=== PATIENT | male | born 2000 | race Caucasian/White ===

== ENCOUNTER 2023-12-18 11:54 | Emergency (ER) | payer OTHER, SELFPAY ==
--- NOTE | 2023-12-18 12:25 | RAD REPORT ---
EXAM: CT brain without contrast HISTORY: altered mental status COMPARISON: None TECHNIQUE: Multiple contiguous axial images were obtained and a CT of the brain without contrast. Sag ittal and coronal reformats were performed. One or more of the following dose reduction techniques were used: Automated exposure control, adjust ment of the mA and/or kV according to patient size, and/or iterative reconstruction. FINDINGS: No evidence of hydrocephalus, intracranial hemorrhage, or extra-axial fluid collection. The brain is normal in morphology. No evidence of midline shift or areas of brain edema. The calvarium is intact. The visualized paranasal sinuses and mastoid air cells are essentially clear . IMPRESSION: No evidence of acute intracranial abnormality.
[2023-12-18] MEDS ORDERED: NA CHLORIDE 0.9% 1,000 ML ONE ×3 (14:53→23:22)
[2023-12-18 14:57] LABS: Specific Gravity 1.017 (1.005-1.030); Sqamous Epithelial <5 /HPF (None Seen); Urine Bacteria None Seen /HPF (<20); Urine Bilirubin NEGATIVE (Negative); Urine Blood Negative (Negative); Urine Clarity Clear (Clear); Urine Color Yellow (Yellow); Urine Crystals Unidentified Few /HPF (None Seen); Urine Culture Reflex Order NOT NEEDED; Urine Glucose NEGATIVE (Negative); Urine Ketones NEGATIVE (Negative); Urine Micro Reflex YN NO BILL MICROSCOPIC; Urine Mucus 3+ /HPF (None Seen); Urine Nitrite NEGATIVE (Negative); Urine Protein NEGATIVE (Negative); Urine RBC <5 /HPF (None Seen); Urine Urobilinogen Normal (Normal); Urine WBC <5 /HPF (<5); Urine WBC Clump Rare /HPF (None Seen)
[2023-12-18 15:12] LABS: Absolute Lymphocytes (CBC) 2.2 K/uL (0.7-4.9); Absolute Monocytes 0.7 K/uL (0.1-1.3); Absolute Neutrophil 5.7 K/uL (1.8-8.0); Basophils % 0.3 % (0-1.3); Eosinophils % 0.5 % (0-4.4); Hemoglobin 13.3 g/dL (13.6-17.9); Lymphocytes % 25.9 % (15.3-44.8); MCH 29.9 pg (27.0-35.0); MCHC 33.3 g/dL (32.0-36.0); MCV 89.6 fL (80-100); MPV 8.3 fL (7.6-11.3); Monocytes % 8.2 % (3.3-12.3); Neutrophils % 65.1 % (41.7-73.7); Platelets 275 thou/uL (152-406); RBC Red Blood Cell Count 4.47 M/uL (4.33-5.43); Red Cell Distribution Width 12.8 % (12.1-15.2)
[2023-12-18 15:23] LABS: PT Prothrombin Time 11.3 SECONDS (9.4-12.5); Protime INR 1.01
[2023-12-18 15:41] LABS: ALT/SGPT 24 U/L (16-61); AST/SGOT 14 U/L (15-37); Albumin/Globulin Ratio 1.4 (1.1-1.8); Alkaline Phosphatase 58 U/L (45-117); Anion Gap 7.9 mEq/L (5.0-15.0); BUN Blood Urea Nitrogen 17 mg/dL (7-18); Bicarbonate 27 mEq/L (21-32); Bilirubin Total 0.3 mg/dL (0.2-1.0); Creatine Phosphokinase 120 U/L (39-308); Globulin 2.9 g/dL (2.3-3.5); Glomerular Filtration Rate 93 ml/min (=/>90); Glucose Level 103 mg/dL (74-106); Potassium 3.9 mEq/L (3.5-5.1); Protein, Total 6.9 g/dL (6.4-8.2); Sodium Level 139 mEq/L (136-145)
[2023-12-18 15:42] LABS: Bilirubin Direct < 0.2 mg/dL (0-0.2); Bilirubin Indirect, Calculated 0.1 mg/dL (0.2-0.8)
[2023-12-18 16:31] LABS: Barbiturates NEGATIVE (NEGATIVE); Benzodiazepines NEGATIVE (NEGATIVE); Cocaine NEGATIVE (NEGATIVE); METHAMPHETAM NEGATIVE (NEGATIVE); Methadone NEGATIVE (NEGATIVE); Opiates NEGATIVE (NEGATIVE); Phencyclidine NEGATIVE (NEGATIVE); THC Cannibis POSITIVE (NEGATIVE)
[2023-12-18] MEDS ORDERED: THIAMINE 200 MG/2 ML INJ ONE (16:33)
[2023-12-18] MEDS ORDERED: FOLIC ACID 5 MG/ML VIAL ONE (16:33)
[2023-12-18] MEDS ORDERED: MULTIVITAMINS 10 ML VIAL (INJ) IV ONE (16:35)
[2023-12-18 17:08] LABS: Arterial Blood Carboxyhemoglob 1.4 % (0-1.5); Blood Gas THB 14.3 g/dl (12-18); Blood O2 Saturation 83.8 % (92-98.5)
--- NOTE | 2023-12-18 17:26 | RAD REPORT ---
Procedure: Chest Single View History: Cough Comparison: none Findings: The lungs appear clear of acute infiltrate. No significant pleural effusion noted. The heart is normal size. IMPRESSION: No acute abnormality is displayed.
--- NOTE | 2023-12-18 18:52 | RAD REPORT ---
EXAM: CT CHEST, ABDOMEN AND PELVIS WITHOUT CONTRAST CLINICAL INDICATION: Chest and abdominal pain TECHNIQUE: CT chest, abdomen and pelvis was performed, with 100 cc Isovue-300 IV contrast, as per de partment protocol. Axial, sagittal and coronal reconstructions were obtained. One or more of the following dose reduction techniques were used: Automated exposure control, adjustment of the mA and/o r kV according to the patient size, and/or iterative reconstruction. Unless otherwise specified, incidental findings do not require dedicated imaging follow-up. [id number]. Oral contrast not given. This limits evaluation of the bowel. COMPARISON: No prior exam. FINDINGS: Lungs are clear No mediastinal or hilar lymphadenopathy. No pleural effusion. Pericardial effusion. Liver, spleen, pancreas, adrenals and kidneys appear unremarkable. There is no evidence of diverticulitis Mild anterior subluxation L5 on S1. Spondylolysis L5 IMPRESSION: No acute abnormalities displayed
[2023-12-18 18:58] LABS: Thyroid Stimulating Hormone 0.259 uIU/mL (0.358-3.740)
[2023-12-18] MEDS ORDERED: CEFTRIAXONE 2000 MG/VIAL ONE (22:23)
[2023-12-18] MEDS ORDERED: VANCOMYCIN 1 GM/VIAL ONE (22:23)
[2023-12-18] MEDS ORDERED: ETOMIDATE 20 MG/10 ML VIAL IV ONE (22:23)
[2023-12-18] MEDS ORDERED: LIDOCAINE 1% 20 ML MDV ONE (22:23)
[2023-12-18] MEDS ORDERED: NA CHLORIDE 0.9% 100 ML ONE ×2 (22:24→22:59)
[2023-12-18] MEDS ORDERED: NA CHLORIDE 0.9% 500 ML ONE (22:24)
[2023-12-18] MEDS ORDERED: D5 0.9 NS 1,000 ML IV ONE (22:24)
[2023-12-18] MEDS ORDERED: ACYCLOVIR NA 500 MG/VIAL IVPB ONE (22:32)
[2023-12-18] MEDS ORDERED: MIDAZOLAM HCL 5 ML ONE ×3 (23:12→23:22)
[2023-12-18 23:45] LABS: Appearance CLEAR (CLEAR); Body Fluid Source CSF; Color of Supernate Not Xanthochromic (Not Xantho); Color of fluid Colorless (COLORLESS); Tube # #2
[2023-12-18 23:47] LABS: Appearance CLEAR (CLEAR); Body Fluid Source CSF; Color of Supernate Not Xanthochromic (Not Xantho); Color of fluid Colorless (COLORLESS); Fluid Total Volume 8 ml; Tube # #4
[2023-12-18 23:55] LABS: CSF Glucose 69 mg/dL (40-70)
[2023-12-19] MEDS ORDERED: LEVETIRACETAM 500 MG/5 ML VIAL IV ONE (00:15)
[2023-12-19] MEDS ORDERED: NA CHLORIDE 0.9% 100 ML ONE (00:16)
[2023-12-19 00:39] LABS: Body Fluid WBC 4 /mm^3
[2023-12-19 00:40] LABS: Body Fluid WBC 5 /mm^3; Fluid Total Cells Count 72
[2023-12-19 00:41] LABS: Body Fluid Lymphocytes 21 %
--- NOTE | 2023-12-19 01:20 | EDPHYS ---
Physician Documentation [facility] Name: Lance Munoz Age: 22 yrs Sex: Male : 2000 Arrival Date: 12/18/2023 Time: 11:54 Bed 4 Private MD: ED Physician Michael Hooker HPI: 12/17 12:03 This 22 yrs old Male presents to ER via Unassigned with complaints of Altered ec2 Mental Status. 12:03 Patient arrives today for evaluation of altered mental status. Patient with patient ec2 arrives today, was at work and subsequently noted to be increasingly altered. EMS reports that they had noted that he had cough and cold medication and the patient struck, p.m. medications. Patient reports no falls injuries or trauma.. Historical: - Allergies: 12:33 No Known Allergies; tl4 - Home Meds: 12:33 None [Active]; tl4 - PMHx: 12:33 None; tl4 - PSHx: 12:33 None; tl4 - Immunization history:: Adult Immunizations unknown. - Infectious Disease History:: Denies. - Social history:: Smoking status: Reported history of juuling and/or vaping. Patient uses THC gummies. ROS: 12:03 Constitutional: as per hpi ec2 Exam: 12:03 Constitutional: GEN: NAD Head: atraumatic Eyes: EOMI Ears: External ears are ec2 normal. CV: regular rate LUNGS: no respiratory distress ABD: non-distended SKIN: no evidence of rashes MSK: no evidence of trauma. Neuro: Cranial nerves II through XII intact, strength intact all 4 extremities., Intermittently drowsy, GCS of 15 Vital Signs: 12:10 BP 120 / 63; Pulse 66; Resp 18; Temp 98.3(O); Pulse Ox 98% on R/A; tl4 12:28 BP 120 / 63; Pulse 70; Resp 14; Temp 97.9(O); Pulse Ox 96% on R/A; Weight 83.91 kg; tl4 Height 6 ft. 0 in. ; Pain 0/10; 12:37 BP 115 / 61; Pulse 63; Resp 16; Pulse Ox 97% on R/A; tl4 13:00 BP 123 / 62; Pulse 62; Resp 13; Pulse Ox 99% on R/A; tl4 13:30 BP 122 / 65; Pulse 59; Resp 18; Pulse Ox 98% on R/A; tl4 14:00 BP 124 / 64; Pulse 63; Resp 18; Pulse Ox 99% on R/A; tl4 14:30 BP 125 / 70; Pulse 60; Resp 18; Pulse Ox 98% on R/A; tl4 15:00 BP 129 / 65; Pulse 65; Resp 15; Pulse Ox 97% on R/A; tl4 15:30 BP 125 / 62; Pulse 67; Resp 15; Pulse Ox 98% on R/A; Pain 0/10; tl4 16:00 BP 128 / 65; Pulse 60; Resp 18; Pulse Ox 97% on R/A; tl4 16:30 BP 123 / 73; Pulse 69; Resp 16; Pulse Ox 99% on R/A; tl4 17:00 BP 119 / 76; Pulse 69; Resp 18; Pulse Ox 99% on R/A; tl4 17:30 BP 127 / 69; Pulse 82; Resp 19; Pulse Ox 99% on R/A; tl4 18:00 BP 125 / 75; Pulse 54; Resp 16; Pulse Ox 98% on R/A; tl4 19:18 BP 121 / 66; Pulse 52; Resp 12; Pulse Ox 98% ; vc1 20:42 BP 110 / 61; Pulse 54; Resp 10; Pulse Ox 97% ; vc1 22:12 BP 115 / 65; Pulse 51; Resp 10; Pulse Ox 97% ; vc1 23:00 BP 112 / 56; Pulse 96; Resp 12; Pulse Ox 100% on 2 lpm NC; vc1 10 00:00 BP 116 / 63; Pulse 79; Resp 14; Temp 97.9; Pulse Ox 100% on 4 lpm NC; vc1 01:00 BP 118 / 53; Pulse 66; Resp 12; Temp 96.9; Pulse Ox 100% ; vc1 02:00 BP 130 / 86; Pulse 72; Resp 15; Pulse Ox 96% ; vc1 10 12:28 Body Mass Index 25.09 (83.91 kg, 182.88 cm) tl4 12:28 Pain Scale: Adult tl4 15:30 Pain Scale: Adult tl4 Procedures: 01:20 Lumbar Puncture: Patient placed in right lateral decubitus position. Prepped with sp4 Betadine. Draped using sterile technique. Collected 8 ml's of clear fluid. Puncture site dressed with band aid, Patient tolerated well. CSF Collected under Moderate Sedation. with Etomidate and Versed . Moderate sedation: Pre-procedure assessment: the patient has been NPO 8 hour(s) prior to arrival, ASA physical classification: I - healthy, no underlying organic disease, Airway assessment: able to hyperextend neck, able to maintain airway, can open mouth without difficulty, Mallampati classification of tongue size: II - faucial pillars and soft palate can be visualized, but uvula is masked by the base of the tongue, Monitoring during procedure: quality assurance monitor, continuous pulse oximetry, nurse at bedside at all times, Medications employed: Etomidate, 40 mg(s), Versed, 15 mg(s), Moderate Sedation done for LP . Patient was given etomidate and Versed IV without complications without respiratory depression., Post-procedure assessment: the patient is moderately sedated, Joseph sedation score: 4 - brisk response to a light glabellar tap, Respiratory status: requires supplemental oxygen to maintain acceptable oxygen saturation, a reversal agent was not used, Total moderate sedation time 25 minutes. . MDM: 12/17 12:03 Data reviewed: vital signs. ED course: Patient arrives today for evaluation of altered ec2 mental status. Examination remarkable for neuro intact individuals otherwise in no acute distress with a reassuring examination. Will obtain lab work, CT scan of the head. Differential includes intracranial mass, bleeding, electrolyte disturbances, anemia, toxic ingestion.. 14:47 ED course: EKG independently reviewed and interpreted by me, shows normal sinus rhythm, ec2 rate of 63, no acute ST segment elevation, intervals are nonactionable.. 15:24 ED course: CBC is reassuring, urine is unremarkable. . ec2 15:45 ED course: Metabolic profile reassuring, Tylenol level undetectable. Liver profile ec2 unremarkable, CPK minimally elevated at 120. . 17:01 ED course: UDS positive for THC. Blood gas non-actionable, ph 7.36, CO2 at 46. ec2 17:36 ED course: On reassessment patient with improving mental status, and is awake, ec2 ambulatory however still remains intermittently confused. Have a lower suspicion for process such as meningitis or encephalitis given lack of infectious symptoms. Will continue to observe him, possibly admit if he remains altered.. 17:57 ED course: Patient signed out pending CT imaging, additional lab work, patient ec2 ultimately remains altered, may require observation versus admission.. 17:59 Patient medically screened. sb4 12/18 01:23 ED course: RADIOLOGYSERVICES REPORT Name: LANCE MUNOZ Acct Number: s :2000 Age:22 Sex:M Ord Phys: Lawrence Olvera Unit Number: [id number] [facility] Dr: NONE Status: REG ER ER Exam Date: 12/18/23 EXAM: CT brain without contrast HISTORY: altered mental status COMPARISON: None TECHNIQUE: Multiple contiguous axial images were obtained and a CT of the brain without contrast. Sagittal and coronal reformats were performed. One or more of the following dose reduction techniques were used: Automated exposure control, adjustment of the mA and/or kV according to patient size, and/or iterative reconstruction. FINDINGS: No evidence of hydrocephalus, intracranial hemorrhage, or extra-axial fluid collection. The brain is normal in morphology. No evidence of midline shift or areas of brain edema. The calvarium is intact. The visualized paranasal sinuses and mastoid air cells are essentially clear. IMPRESSION: No evidence of acute intracranial abnormality. . ED course: Procedure: Chest Single View History: Cough Comparison: none Findings: The lungs appear clear of acute infiltrate. No significant pleural effusion noted. The heart is normal size. IMPRESSION: No acute abnormality is displayed.. ED course: CT - A pericardial effusion is not present Addendum Dictated By: Pierre Easton MD Addendum Signed By: Pierre Easton MD Dictated Date/Time: 12/18/2301/30/1853 Transcribed Date/Time: / Signed Date/Time: 12/18/231852 CC: Lawrence Olvera; NONE EXAM: CT CHEST, ABDOMEN AND PELVIS WITHOUT CONTRAST CLINICAL INDICATION: Chest and abdominal pain TECHNIQUE: CT chest, abdomen and pelvis was performed, with 100 cc Isovue-300 IV contrast, as per department protocol. Axial, sagittal and coronal reconstructions were obtained. One or more of the following dose reduction techniques were used: Automated exposure control, adjustment of the mA and/or kV according to the patient size, and/or iterative reconstruction. Unless otherwise spe cified, incidental findings do not require dedicated imaging follow-up. [id number]. Oral contrast not given. This limits evaluation of the bowel. COMPARISON: No prior exam. FINDINGS: Lungs are clear No mediastinal or hilar lymphadenopathy. Cont No pleural effusion. Pericardial effusion. Liver, spleen, pancreas, adrenals and kidneys appear unremarkable. There is no evidence of diverticulitis Mild anterior subluxation L5 on S1. Spondylolysis L5 IMPRESSION: No acute abnormalities displayed. 02:53 Differential Diagnosis: CVA, electrolyte abnormality, alcohol intoxication, sp4 hypoglycemia, intracranial bleed, meningitis, overdose, pneumonia, seizure, sepsis. Consideration of Admission/Observation Escalation of care including admission/observation considered. ED course: CLINICAL HISTORY: Obtunded. COMPARISON: CT Head 12/18/2023. TECHNIQUE: CT NECK ANGIOGRAPHYWITH IV CONTRAST, CT HEAD ANGIOGRAPHYWITH IV CONTRAST on 12/19/2023 12:04 AM CDT This exam was performed according to our departmental dose-optimization program, which includes automated exposure control, adjustment of the mA and/or kV according to patient size and/or use of iterative reconstruction technique. MIP reconstructions were generated. Stenoses are calculated by NASCET criteria. FINDINGS: The visualized aortic arch and origins of the great vessels unremarkable. The common carotid arteries are patent and symmetric bilaterally. No hemodynamically significant stenosis is observed at the common carotid bifurcations or origins of the internal carotid arteries bilaterally. Vertebral arteries are unremarkable without evidence of pseudoaneurysm, hemodynamically significant stenosis, or dissection. Intracranially the cavernous segments of the internal carotid arteries are patent and symmetric bilaterally. Vertebral basilar system within normal limits for age. No aneurysm identified within the [place]. Anterior, middle, and posterior cerebral circulations are patent and symmetric bilaterally. Dural sinuses are well opacified and without filling defect. IMPRESSION: Unremarkable CT angiogram of the neck for age without dissection or hemodynamically significant stenosis. Unremarkable CTA of the brain without evidence of hemodynamically significant stenosis, aneurysm or AVM. . 12/17 11:56 Order name: Acetaminophen; Complete Time: 15:45 ec2 12/17 11:56 Order name: Basic Metabolic Panel; Complete Time: 15:45 ec2 12/17 11:56 Order name: CBC with Diff; Complete Time: 15:23 ec2 12/17 11:56 Order name: ETOH Level; Complete Time: 15:35 2 12/17 11:56 Order name: Hepatic Function; Complete Time: 15:45 2 12/17 11:56 Order name: PT-INR; Complete Time: 15:23 ec2 12/17 11:56 Order name: Ptt, Activated; Complete Time: 15:23 2 12/17 11:56 Order name: Salicylate; Complete Time: 15:45 2 12/17 11:56 Order name: Urine Drug Screen; Complete Time: 17:01 2 12/17 13:57 Order name: UAM; Complete Time: 15:23 2 12/17 15:08 Order name: Creatine Phosphokinase; Complete Time: 15:45 MS 12/17 16:26 Order name: AMMONIA; Complete Time: 17:33 2 12/17 16:26 Order name: ABG: VBG not ABG 2 12/17 17:54 Order name: TSH; Complete Time: 19:05 2 12/17 17:54 Order name: T4 Free; Complete Time: 19:05 2 12/17 17:54 Order name: Osmolality, Serum; Complete Time: 19:19 2 12/17 21:39 Order name: Csf Culture; Complete Time: 14:31 4 12/17 21:39 Order name: Fluid Cell Count,Body; Complete Time: 01:18 4 12/17 21:39 Order name: Spinal Fluid Profile; Complete Time: 01:18 4 12/18 00:39 Order name: ABG: Venous Blood Gas; Complete Time: 02:52 4 12/17 11:56 Order name: CT Head Brain wo Cont; Complete Time: 12:41 2 12/17 16:26 Order name: CXR XRAY; Complete Time: 17:33 2 12/17 17:52 Order name: CT Chest, Abdomen, Pelvis - W/Contrast; Complete Time: 18:57 2 12/18 00:04 Order name: CT Neck Angio [facility] 12/18 00:10 Order name: Head angio [facility] 12/17 11:56 Order name: EKG; Complete Time: 11:56 2 12/17 11:56 Order name: EKG - Nurse/Tech; Complete Time: 15:03 2 12/17 11:56 Order name: IV Saline Lock; Complete Time: 12:28 ec2 12/17 11:56 Order name: Labs collected and sent; Complete Time: 12:28 ec2 12/17 11:56 Order name: Suicide Screening ([place]); Complete Time: 14:09 ec2 12/17 16:26 Order name: Misc. Order: venous blood gas; Complete Time: 16:59 ec2 12/17 21:39 Order name: LP Consents; Complete Time: 01:22 sp4 12/17 21:39 Order name: LP Setup; Complete Time: 22:14 sp4 12/17 23:35 Order name: [place]; Complete Time: 23:35 ha1 Administered Medications: 12/17 15:02 Drug: NS 0.9% IV 1000 ml IV at 1 bolus Per protocol; to be given as a bolus over 60 tl4 minutes Route: IV; Rate: 1 bolus; Site: right antecubital; Delivery: Primary tubing; 16:30 Follow up: Response: No adverse reaction; IV Status: Completed infusion; IV Intake: tl4 1000ml 16:59 Drug: Banana Bag - (Multivitamin IV 1 amp, NS 0.9% IV 1000 ml, Thiamine IV 100 mg, tl4 foLIC Acid IVPB 1 mg) IV at calculated rate once Route: IV; Rate: calculated rate; Site: right antecubital; Delivery: Primary tubing; 18:54 Follow up: Response: No adverse reaction; IV Status: Completed infusion; IV Intake: tl4 1000ml 23:11 Drug: Etomidate IVP 20 mg IVP once Route: IVP; Site: right antecubital; vc1 23:12 Follow up: Response: No change in condition vc1 23:12 Drug: Etomidate IVP 20 mg IVP once Route: IVP; Site: right antecubital; vc1 23:15 Follow up: Response: No change in condition vc1 23:15 Drug: Lidocaine Infiltration (1 %) 20 ml 20 ml Infiltration once; to bedside {Note: vc1 administered by Dr. Hooker.} Volume: 20 ml; Route: Infiltration; 23:16 Drug: Midazolam IVP or IV 5 mg IVP once Route: IVP; Site: right antecubital; vc1 23:18 Follow up: Response: No adverse reaction; RASS: Restless (+1) vc1 23:20 Drug: Midazolam IVP or IV 5 mg IVP once Route: IVP; Site: right antecubital; vc1 23:23 Follow up: Response: No adverse reaction; RASS: Light sedation (-2) vc1 23:24 Drug: Midazolam IVP or IV 5 mg IVP once Route: IVP; Site: right antecubital; vc1 23:25 Follow up: Response: Marked relief of symptoms; RASS: Unarousable (-5) vc1 23:35 Drug: D5-NS IV 1000 ml IV at 125 ml/hr continuous Route: IV; Rate: 125 ml/hr; Site: vc1 left antecubital; 12/18 02:17 Follow up: IV Status: Infusion continued upon transfer; IV Intake: 250ml vc1 12/17 23:35 Drug: Acyclovir IVPB 1000 mg IVPB once Route: IVPB; Site: right antecubital; vc1 12/18 00:35 Follow up: IV Status: Completed infusion; IV Intake: 100ml vc1 12/17 23:40 Drug: Rocephin - Rocephin ([id number]) IVPB 2 grams IVPB once over 30 mins; (mix in vc1 100 mL NS) Route: IVPB; Infused Over: 30 mins; Site: right upper arm; 12/18 00:10 Follow up: IV Status: Completed infusion; IV Intake: 100ml vc1 00:22 Drug: Keppra IV 1000 mg IV at bolus once Route: IV; Rate: bolus; Site: right upper arm; vc1 00:34 Follow up: IV Status: Completed infusion; IV Intake: 100ml vc1 01:00 Drug: vancoMYCIN IVPB 2 grams IVPB at calculated rate once Route: IVPB; Rate: vc1 calculated rate; Site: right antecubital; 01:40 Follow up: Response: Adverse reaction, Physician notified; IV Status: Order to ha1 discontinue infusion 01:45 Drug: diphenhydrAMINE IVP 50 mg IVP once Route: IVP; Site: left antecubital; ha1 02:15 Follow up: Response: No adverse reaction; Marked relief of symptoms vc1 01:47 Drug: MethylPrednisoLONE IVP 125 mg IVP once Route: IVP; Site: left antecubital; ha1 02:15 Follow up: Response: No adverse reaction; Marked relief of symptoms vc1 02:15 Not Given (Hemodynamic Parameters): mg IM once vc1 Disposition Summary: 12/19/23 01:19 Transfer Ordered Notes: Transfer Location: [facility] sp4 Reason: Higher level of care sp4 Condition: Stable sp4 Problem: new sp4 Symptoms: have improved sp4 Accepting Physician: [facility](12/19/23 02:20) vc1 Diagnosis - Altered mental status, unspecified sp4 - Acute lethargy, suspected encephalitis, Acute toxic encephalopathy sp4 Discharge Instructions: - Discharge Summary Sheet ec2 - Confusion ec2 Forms: - Medication Reconciliation Form sp4 - SBAR form sp4 Signatures: Dispatcher [employer] EDMS Carley Montemayor RN RN vc1 Katarzyna Menjivar RN RN ha1 Gema Lutz, PAAngelic PAAngelic sb4 Michael Hooker MD MD sp4 Lawrence Olvera MD MD ec2 Sushant Peralta RN RN tl4 Corrections: (The following items were deleted from the chart) 12/17 11:56 11:56 ACETAMINOPHEN+C.LAB.BRZ ordered. EDMS EDMS 11:56 11:56 BASIC METABOLIC PANEL+C.LAB.BRZ ordered. EDMS EDMS 11:56 11:56 CBC+H.LAB.BRZ ordered. EDMS EDMS 11:56 11:56 ETHANOL+C.LAB.BRZ ordered. EDMS EDMS 11:56 11:56 HEPATIC FUNCTION+C.LAB.BRZ ordered. EDMS EDMS 11:56 11:56 PROTIME (+INR)+COAG.LAB.BRZ ordered. EDMS EDMS 11:56 11:56 PTT, ACTIVATED+COAG.LAB.BRZ ordered. EDMS EDMS 11:56 11:56 SALICYLATE+C.LAB.BRZ ordered. EDMS EDMS 11:56 11:56 URINE DRUG SCREEN+UC.LAB.BRZ ordered. EDMS EDMS 11:57 11:57 Head Brain Wo Cont+CT.RAD.BRZ ordered. EDMS EDMS 15:08 13:15 CREATINE PHOSPHOKINASE+C.LAB.BRZ ordered. EDMS EDMS 16:26 16:26 Arterial Blood Gas+RC.LAB.BRZ ordered. EDMS EDMS 12/18 02:20 01:19 [facility] sp4 vc1
--- NOTE | 2023-12-19 01:20 | ER ---
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 Pt states he took Tylenol sinus medication, denies any illicit substances. Pt states he was not stung or bitten by the animals. Pt is oriented when awake, but falls asleep easily. Pt denies pain or any other symptoms. Pt currently can state his name, , and location. Coronavirus screen: At this time, the client does not indicate any symptoms associated with coronavirus-19. Ebola Screen: No symptoms or risks identified at this time. Initial Sepsis Screen: Does the patient meet any 2 criteria? No. Patient's initial sepsis screen is negative. Does the patient have a suspected source of infection? No. Patient's initial sepsis screen is negative. Risk Assessment: Do you want to hurt yourself or someone else? Patient reports no desire to harm self or others. Onset of symptoms was December 18, 2023 at 12:00. 12:28 Method Of Arrival: EMS: [facility] tl4 12:28 Acuity: EKATERINA 3 tl4 12:34 Care prior to arrival: IV initiated. 20 GA, in the right antecubital area, Glucose tl4 check: 150. Triage Assessment: 12:34 General: Appears in no apparent distress. well groomed, Behavior is cooperative, tl4 drowsy. Pain: Denies pain. EENT: No deficits noted. No signs and/or symptoms were reported regarding the EENT system. Neuro: Level of Consciousness is awake, obeys commands, pt responds easily to verbal stimuli. Neuro: Oriented to person, place, Tissue Inserter are equal bilaterally Moves all extremities. Full function Speech is normal, Facial symmetry appears normal, Pupils are PERRLA, Pupil Size: 4mm Intact. Cardiovascular: Capillary refill < 3 seconds Patient's skin is warm and dry. Rhythm is sinus rhythm. Respiratory: Airway is patent Respiratory effort is even, unlabored, Respiratory pattern is regular, symmetrical, Breath sounds are clear bilaterally. GI: No deficits noted. No signs and/or symptoms were reported involving the gastrointestinal system. : No signs and/or symptoms were reported regarding the genitourinary system. Derm: No signs and/or symptoms reported regarding the dermatologic system. Musculoskeletal: No deficits noted. No signs and/or symptoms reported regarding the musculoskeletal system. Historical: - Allergies: 12:33 No Known Allergies; tl4 - Home Meds: 12:33 None [Active]; tl4 - PMHx: 12:33 None; tl4 - PSHx: 12:33 None; tl4 - Immunization history:: Adult Immunizations unknown. - Infectious Disease History:: Denies. - Social history:: Smoking status: Reported history of juuling and/or vaping. Patient uses THC gummies. Screenin:37 [facility] ED Fall Risk Assessment (Adult) History of falling in the last 3 months, tl4 including since admission No falls in past 3 months (0 pts) Confusion or Disorientation No (0 pts) Intoxicated or Sedated No (0 pts) Impaired Gait No (0 pts) Mobility Assist Device Used No (0 pt) Altered Elimination No (0 pt) Score/Fall Risk Level 0 - 2 = Low Risk Oriented to surroundings, Maintained a safe environment, Educated pt \\T\\ family on fall prevention, incl call for assistance when getting out of bed, Assessed \\T\\ reinforced patient's understanding of fall precautions. Abuse screen: Denies threats or abuse. Denies injuries from another. Nutritional screening: No deficits noted. Tuberculosis screening: No symptoms or risk factors identified. Assessment: 14:10 Reassessment: No changes from previously documented assessment. Patient and/or family tl4 updated on plan of care and expected duration. Pain level reassessed. Pt remains responsive to verbal stimuli, falls asleep earlier. Pt remains cooperative, no acute distress, denies any complaints. Call short at bedside, will continue to monitor. 15:31 Reassessment: Patient and/or family updated on plan of care and expected duration. Pain tl4 level reassessed. Pt sleeping, remains responsive to verbal stimuli. Pt denies any symptoms or needs. Call short at bedside, will continue to monitor. 19:00 General: Appears in no apparent distress. slender, well groomed, well developed, well vc1 nourished, Behavior is flat, inappropriate for age, quiet. Pain: Denies pain. Neuro: Level of Consciousness is lethargic, listless, Oriented to person. Cardiovascular: Heart tones S1 S2 Capillary refill < 3 seconds Patient's skin is warm and dry. Respiratory: Airway is patent Respiratory effort is even, unlabored, Respiratory pattern is regular, hypoventilation Breath sounds are clear bilaterally. GI: Abdomen is flat, non-distended, Bowel sounds present X 4 quads. : No deficits noted. No signs and/or symptoms were reported regarding the genitourinary system. EENT: No deficits noted. No signs and/or symptoms were reported regarding the EENT system. Derm: Skin is intact, is healthy with good turgor, Skin is dry, Skin is normal, Skin temperature is cool. Musculoskeletal: Circulation, motion, and sensation intact. Range of motion: intact in all extremities. 19:19 Reassessment: Patient appears in no apparent distress at this time. No changes from vc1 previously documented assessment. Patient and/or family updated on plan of care and expected duration. Pain level reassessed. 20:25 Reassessment: Family at bedside, pt up out of bed walking around. Family request vc1 transfer to a bigger facility to obtain an MRI, provider notified. 20:42 General: Appears in no apparent distress. well groomed, well developed, Behavior is vc1 flat, inappropriate for age. Neuro: Level of Consciousness is awake, lethargic, Oriented to person. 22:13 Reassessment: Patient appears in no apparent distress at this time. No changes from vc1 previously documented assessment. Patient and/or family updated on plan of care and expected duration. Pain level reassessed. 12/18 00:06 Reassessment: Patient appears in no apparent distress at this time. General: Behavior vc1 is medically sedated. Neuro: Level of Consciousness is unresponsive, Oriented to none. 01:24 Reassessment: Patient appears in no apparent distress at this time. No changes from vc1 previously documented assessment. Neuro: Level of Consciousness is unresponsive, Oriented to none. 01:39 Reassessment: NOTIFIED DR. HOOKER. Derm: Rash noted that is red, raised, on face and ha1 neck. 02:18 Reassessment: Patient appears in no apparent distress at this time. No changes from vc1 previously documented assessment. Patient and/or family updated on plan of care and expected duration. Pain level reassessed. Patient states symptoms have not improved. Psych: 12/17 15:03 [place] Suicide Severity Screening: In the past month, have you wished you were tl4 or wished you could go to sleep and not wake up? Patient responds "No." "In the past month, have you actually had any thoughts of killing yourself?" Patient responds "no." "In your lifetime, have you ever done anything, started to do anything, or prepared to do anything to end your life?" Patient responds "no.". Subjective: Patient's mood is flat. Objective: Patient is cooperative, Speech is normal, Affect is appropriate. Interventions: Patient placed in hospital gown. Urine collected and sent for urine drug test. Safety Checks: Door is open. Visitors are present. Pt denies substance abuse. Commitment: not applicable. Vital Signs: 12:10 BP 120 / 63; Pulse 66; Resp 18; Temp 98.3(O); Pulse Ox 98% on R/A; tl4 12:28 BP 120 / 63; Pulse 70; Resp 14; Temp 97.9(O); Pulse Ox 96% on R/A; Weight 83.91 kg; tl4 Height 6 ft. 0 in. ; Pain 0/10; 12:37 BP 115 / 61; Pulse 63; Resp 16; Pulse Ox 97% on R/A; tl4 13:00 BP 123 / 62; Pulse 62; Resp 13; Pulse Ox 99% on R/A; tl4 13:30 BP 122 / 65; Pulse 59; Resp 18; Pulse Ox 98% on R/A; tl4 14:00 BP 124 / 64; Pulse 63; Resp 18; Pulse Ox 99% on R/A; tl4 14:30 BP 125 / 70; Pulse 60; Resp 18; Pulse Ox 98% on R/A; tl4 15:00 BP 129 / 65; Pulse 65; Resp 15; Pulse Ox 97% on R/A; tl4 15:30 BP 125 / 62; Pulse 67; Resp 15; Pulse Ox 98% on R/A; Pain 0/10; tl4 16:00 BP 128 / 65; Pulse 60; Resp 18; Pulse Ox 97% on R/A; tl4 16:30 BP 123 / 73; Pulse 69; Resp 16; Pulse Ox 99% on R/A; tl4 17:00 BP 119 / 76; Pulse 69; Resp 18; Pulse Ox 99% on R/A; tl4 17:30 BP 127 / 69; Pulse 82; Resp 19; Pulse Ox 99% on R/A; tl4 18:00 BP 125 / 75; Pulse 54; Resp 16; Pulse Ox 98% on R/A; tl4 19:18 BP 121 / 66; Pulse 52; Resp 12; Pulse Ox 98% ; vc1 20:42 BP 110 / 61; Pulse 54; Resp 10; Pulse Ox 97% ; vc1 22:12 BP 115 / 65; Pulse 51; Resp 10; Pulse Ox 97% ; vc1 23:00 BP 112 / 56; Pulse 96; Resp 12; Pulse Ox 100% on 2 lpm NC; vc1 12/18 00:00 BP 116 / 63; Pulse 79; Resp 14; Temp 97.9; Pulse Ox 100% on 4 lpm NC; vc1 01:00 BP 118 / 53; Pulse 66; Resp 12; Temp 96.9; Pulse Ox 100% ; vc1 02:00 BP 130 / 86; Pulse 72; Resp 15; Pulse Ox 96% ; vc1 12/17 12:28 Body Mass Index 25.09 (83.91 kg, 182.88 cm) tl4 12:28 Pain Scale: Adult tl4 15:30 Pain Scale: Adult tl4 ED Course: 12/17 11:56 Patient arrived in ED. ec2 11:56 Lawrence Olvera MD is Attending Physician. ec2 12:13 CT Head Brain wo Cont In Process Unspecified. EDMS 12:28 Sushant Peralta, JUSTINA is Primary Nurse. tl4 12:33 Triage completed. tl4 12:37 Arm band placed on right wrist. tl4 12:38 Patient has correct armband on for positive identification. Placed in gown. Bed in low tl4 position. Call light in reach. Side rails up X2. Provided Education on: ed process, call short. Client placed on continuous cardiac and pulse oximetry monitoring. NIBP monitoring applied. child welfare worker on. Noise minimized. Lights dimmed. Moved to private room. Warm blanket given. 12:38 No provider procedures requiring assistance completed. Maintain EMS IV. Dressing tl4 intact. Good blood return noted. Site clean \\T\\ dry. Gauge \\T\\ site: 20g right antecubital. Flushed with 10 mL NS. 14:09 UAM Sent. tl4 15:03 Acetaminophen Sent. tl4 15:03 Basic Metabolic Panel Sent. tl4 15:03 CBC with Diff Sent. tl4 15:03 ETOH Level Sent. tl4 15:03 Hepatic Function Sent. tl4 15:03 PT-INR Sent. tl4 15:03 Ptt, Activated Sent. tl4 15:03 Salicylate Sent. tl4 15:03 Urine Drug Screen Sent. tl4 16:59 ABG: VBG not ABG Sent. tl4 16:59 AMMONIA Sent. tl4 17:19 CXR XRAY In Process Unspecified. EDMS 17:59 Gema Lutz PA-C is PHCP. sb4 18:40 CT Chest, Abdomen, Pelvis - W/Contrast In Process Unspecified. EDMS 18:53 Osmolality, Serum Sent. tl4 18:53 T4 Free Sent. tl4 18:54 TSH Sent. tl4 20:37 Attending Physician role handed off by Lawrence Olvera MD sp4 20:37 Michael Hooker MD is Attending Physician. sp4 23:00 One-on-one care X 60 minutes. vc1 23:00 Consent for conscious sedation explained by physician, signed by parent, Consent for a vc1 lumbar puncture explained by physician, signed by parent. 23:15 Assist provider with lumbar puncture: Set up LP tray. Performed by Michael Hooker MD vc1 CSF is clear. Puncture site dressed with band aid, Procedure was successful. Patient tolerated well. 23:35 Dewitt cath inserted, using sterile technique, 16 Fr., by nh, balloon inflated, urine ha1 specimen collected. returned clear yellow urine. Patient tolerated well. 23:35 Inserted saline lock: 18 gauge in right upper arm, using aseptic technique. Flushed vc1 with 10 mL NS. 23:40 Inserted saline lock: 18 gauge in left antecubital area, using aseptic technique. vc1 Flushed with 10 mL NS. 23:51 [facility] CALLED TO INITIATE TRANSFER, SPOKE WITH PAMELA. ty 12/18 00:40 WAITING ON ALL IMAGING AND LAB WORK TO BE COMPLETED BEFORE CALLING FOR TRANSPORT. ty 01:01 CT Neck Angio In Process Unspecified. EDMS 01:02 Head angio In Process Unspecified. EDMS 01:25 [facility] STATED BUSY AT THE [facility] ETA 45 MINUTES, [facility] CALLED ETA 15 MINUTES. ty 02:18 Patient transferred, IV remains in place. vc1 Administered Medications: 12/17 15:02 Drug: NS 0.9% IV 1000 ml IV at 1 bolus Per protocol; to be given as a bolus over 60 tl4 minutes Route: IV; Rate: 1 bolus; Site: right antecubital; Delivery: Primary tubing; 16:30 Follow up: Response: No adverse reaction; IV Status: Completed infusion; IV Intake: tl4 1000ml 16:59 Drug: Banana Bag - (Multivitamin IV 1 amp, NS 0.9% IV 1000 ml, Thiamine IV 100 mg, tl4 foLIC Acid IVPB 1 mg) IV at calculated rate once Route: IV; Rate: calculated rate; Site: right antecubital; Delivery: Primary tubing; 18:54 Follow up: Response: No adverse reaction; IV Status: Completed infusion; IV Intake: tl4 1000ml 23:11 Drug: Etomidate IVP 20 mg IVP once Route: IVP; Site: right antecubital; vc1 23:12 Follow up: Response: No change in condition vc1 23:12 Drug: Etomidate IVP 20 mg IVP once Route: IVP; Site: right antecubital; vc1 23:15 Follow up: Response: No change in condition vc1 23:15 Drug: Lidocaine Infiltration (1 %) 20 ml 20 ml Infiltration once; to bedside {Note: vc1 administered by Dr. Hooker.} Volume: 20 ml; Route: Infiltration; 23:16 Drug: Midazolam IVP or IV 5 mg IVP once Route: IVP; Site: right antecubital; vc1 23:18 Follow up: Response: No adverse reaction; RASS: Restless (+1) vc1 23:20 Drug: Midazolam IVP or IV 5 mg IVP once Route: IVP; Site: right antecubital; vc1 23:23 Follow up: Response: No adverse reaction; RASS: Light sedation (-2) vc1 23:24 Drug: Midazolam IVP or IV 5 mg IVP once Route: IVP; Site: right antecubital; vc1 23:25 Follow up: Response: Marked relief of symptoms; RASS: Unarousable (-5) vc1 23:35 Drug: D5-NS IV 1000 ml IV at 125 ml/hr continuous Route: IV; Rate: 125 ml/hr; Site: vc1 left antecubital; 12/18 02:17 Follow up: IV Status: Infusion continued upon transfer; IV Intake: 250ml vc1 12/17 23:35 Drug: Acyclovir IVPB 1000 mg IVPB once Route: IVPB; Site: right antecubital; vc1 12/18 00:35 Follow up: IV Status: Completed infusion; IV Intake: 100ml vc1 12/17 23:40 Drug: Rocephin - Rocephin (cefTRIAXone) IVPB 2 grams IVPB once over 30 mins; (mix in vc1 100 mL NS) Route: IVPB; Infused Over: 30 mins; Site: right upper arm; 12/18 00:10 Follow up: IV Status: Completed infusion; IV Intake: 100ml vc1 00:22 Drug: Keppra IV 1000 mg IV at bolus once Route: IV; Rate: bolus; Site: right upper arm; vc1 00:34 Follow up: IV Status: Completed infusion; IV Intake: 100ml vc1 01:00 Drug: vancoMYCIN IVPB 2 grams IVPB at calculated rate once Route: IVPB; Rate: vc1 calculated rate; Site: right antecubital; 01:40 Follow up: Response: Adverse reaction, Physician notified; IV Status: Order to ha1 discontinue infusion 01:45 Drug: diphenhydrAMINE IVP 50 mg IVP once Route: IVP; Site: left antecubital; ha1 02:15 Follow up: Response: No adverse reaction; Marked relief of symptoms vc1 01:47 Drug: MethylPrednisoLONE IVP 125 mg IVP once Route: IVP; Site: left antecubital; ha1 02:15 Follow up: Response: No adverse reaction; Marked relief of symptoms vc1 02:15 Not Given (Hemodynamic Parameters): [id number] mg IM once vc1 Medication: 12/17 12:37 VIS not applicable for this client. tl4 Intake: 16:30 IV: 1000ml; Total: 1000ml. tl4 18:54 IV: 1000ml; Total: 2000ml. tl4 12/18 00:10 IV: 100ml; Total: 2100ml. vc1 00:34 IV: 100ml; Total: 2200ml. vc1 00:35 IV: 100ml; Total: 2300ml. vc1 02:17 IV: 250ml; Total: 2550ml. vc1 Outcome: 01:19 ER care complete, transfer ordered by . sp4 02:17 Transferred by ground EMS to [facility], Transfer form completed. vc1 X-rays sent w/ patient. 02:17 Condition: stable 02:17 Instructed on the need for transfer, 02:20 Patient left the ED. vc1 Signatures: Dispatcher [employer] EDMS Carley Montemayor RN RN vc1 Katarzyna Menjivar RN RN haGema Romero, PA-C PA-Michael Bryan MD MD sp4 Lawrence Olvera MD MD ec2 Sushant Peralta RN RN tl4 [place] Corrections: (The following items were deleted from the chart) 12/17 19:21 19:19 Reassessment: No changes from previously documented assessment. Patient and/or vc1 family updated on plan of care and expected duration. Pain level reassessed. vc1
[2023-12-19 01:40] LABS: Arterial Blood Carboxyhemoglob 0.7 % (0-1.5); Blood Gas Oxyhemoglobin 83.4 % (94-97); Blood Gas THB 13.4 g/dl (12-18); Blood O2 Saturation 85.5 % (92-98.5)
[2023-12-19] MEDS ORDERED: DIPHENHYDRAMINE 50 MG/ML VIAL ONE (01:40)
[2023-12-19] MEDS ORDERED: METHYLPREDNISOLONE 125 MG INJ ONE (01:40)
--- NOTE | 2023-12-19 02:33 | RAD REPORT ---
CLINICAL HISTORY: Obtunded. COMPARISON: CT Head 12/18/2023. TECHNIQUE: CT NECK ANGIOGRAPHY WITH IV CONTRAST, CT HEAD ANGIOGRAPHY WITH IV CONTRAST on 12/19/2023 1 2:04 AM CDT This exam was performed according to our departmental dose-optimization program, which includes autom ated exposure control, adjustment of the mA and/or kV according to patient size and/or use of iterative reconstruction technique. MIP reconstructions were generated. Stenoses are calculated by NASCET criteria. FINDINGS: The visualized aortic arch and origins of the great vessels unremarkable. The common carotid arteries are patent and symmetric bilaterally. No hemodynamically significant stenosis is observed at the common carotid bifurcations or origins of the internal carotid arteries bilaterally. Vertebral arteries are unremarkable without evidence of pseudoaneurysm, hemodynamically significant s tenosis, or dissection. Intracranially the cavernous segments of the internal carotid arteries are patent and symmetric bilat erally. Vertebral basilar system within normal limits for age. No aneurysm identified within the [place]. Anterior, middle, and posterior cerebral circulat ions are patent and symmetric bilaterally. Dural sinuses are well opacified and without filling defect. IMPRESSION: Unremarkable CT angiogram of the neck for age without dissection or hemodynamically significant steno sis. Unremarkable CTA of the brain without evidence of hemodynamically significant stenosis, aneurysm or A VM. CAROTID STENOSIS REFERENCE USING NASCET CRITERIA: % ICA stenosis = (1 - narrowest ICA diameter/diameter of distal cervical ICA) x 100. Mild - <50% stenosis. Moderate - 50-69% stenosis. Severe - 70-94% stenosis. Near occlusion - 95-99% stenosis. Occluded - 100% stenosis. Electronically signed by: Jewel Thurston MD 12/19/2023 01:34 AM CDT RP Due to temporary technical issues with the PACS/[employer] reporting system, reports are being berto d by the in-house radiologist without review as a courtesy to ensure prompt reporting the interpreting radiologist is fully responsible for the content of the report. Transcribed Date/Time: 12/19/2023 9:52 PM
--- NOTE | 2023-12-19 02:34 | RAD REPORT ---
CLINICAL HISTORY: Obtunded. COMPARISON: CT Head 12/18/2023. TECHNIQUE: CT NECK ANGIOGRAPHY WITH IV CONTRAST, CT HEAD ANGIOGRAPHY WITH IV CONTRAST on 12/19/2023 1 2:04 AM CDT This exam was performed according to our departmental dose-optimization program, which includes autom ated exposure control, adjustment of the mA and/or kV according to patient size and/or use of iterative reconstruction technique. MIP reconstructions were generated. Stenoses are calculated by NASCET criteria. FINDINGS: The visualized aortic arch and origins of the great vessels unremarkable. The common carotid arteries are patent and symmetric bilaterally. No hemodynamically significant stenosis is observed at the common carotid bifurcations or origins of the internal carotid arteries bilaterally. Vertebral arteries are unremarkable without evidence of pseudoaneurysm, hemodynamically significant s tenosis, or dissection. Intracranially the cavernous segments of the internal carotid arteries are patent and symmetric bilat erally. Vertebral basilar system within normal limits for age. No aneurysm identified within the [place]. Anterior, middle, and posterior cerebral circulat ions are patent and symmetric bilaterally. Dural sinuses are well opacified and without filling defect. IMPRESSION: Unremarkable CT angiogram of the neck for age without dissection or hemodynamically significant steno sis. Unremarkable CTA of the brain without evidence of hemodynamically significant stenosis, aneurysm or A VM. CAROTID STENOSIS REFERENCE USING NASCET CRITERIA: % ICA stenosis = (1 - narrowest ICA diameter/diameter of distal cervical ICA) x 100. Mild - <50% stenosis. Moderate - 50-69% stenosis. Severe - 70-94% stenosis. Near occlusion - 95-99% stenosis. Occluded - 100% stenosis. Electronically signed by: Jewel Thurston MD 12/19/2023 01:34 AM CDT RP Due to temporary technical issues with the PACS/[employer] reporting system, reports are being berto d by the in-house radiologist without review as a courtesy to ensure prompt reporting the interpreting radiologist is fully responsible for the content of the report. Transcribed Date/Time: 12/19/2023 9:52 PM
[2023-12-19 08:26] VITALS: TEMP 96.9
[2023-12-19 08:28] VITALS: BP 130/86; O2SAT 96
== END 2023-12-19 02:20 | disposition short-term general hospital (02) ==
LOC: ER 11:54
DX: G92.9 Unspecified toxic encephalopathy (principal); R53.83 Other fatigue
CPT/HCPCS: 93005; 87070; 85025; 81001; 80048; 36415; 82140; 89050 ×2; 82550; 84157; 85610; 82945; 80076; 85730; 84443; 84439; 80307; 83930; 70450; 71260; 70496; 70498; 74177; 71045; 82805 ×2; 80143; 80179; 82077; 36600 ×2; 62270; Q9967 ×2; J3411; J2250 ×3; J1953; J2001; J1200; J0133; J2919; J0696; J7042; J7040; J7030 ×3